=== PATIENT | female | born 1945 | race African-American/Black ===

== ENCOUNTER 2017-07-04 15:18 | Outpatient (CLI) | payer MEDICARE, OTHER | END 2017-07-04 15:19 | disposition home or self-care (01) | LOC: LABHHL 15:18 | PROVIDERS: ATTEND Specialist | DX: D24.2 Benign neoplasm of left breast (principal) | CPT/HCPCS: 88305 ==

== ENCOUNTER 2021-09-14 10:57 | Outpatient (CLI) | payer MEDICARE ==
--- NOTE | 2021-09-14 18:33 | Mammography Report ---
DIGITAL SCREENING MAMMOGRAM WITH CAD, 09/14/2021 CLINICAL INFORMATION / INDICATION: Routine screening mammography. SCREENING TECHNIQUE: Digital bilateral 2D mammography was obtained in the craniocaudal and mediolateral obliqu e projections. This examination was interpreted with the benefit of Computer-Aided Detection analysis . COMPARISON: Prior mammogram 08/14/2019 FINDINGS: Breast Density: The breasts are heterogeneously dense, which may obscure small masses. No dominant mass, suspicious calcifications, or architectural distortion in either breast. There is a stable benign-appearing nodular density with associated biopsy clip in the left breast. Th ere has been no significant change compared with the prior examination. IMPRESSION: No mammographic evidence of malignancy. Follow up recommendation: Routine yearly BI-RADS Category 2: BENIGN. A "normal" or negative report should not discourage follow up or biopsy of a clinically significant f inding. A written summary of these findings will be mailed to the patient. The patient will be entered into a mammography reporting system which will generate a reminder letter for the patient's next appointmen t at the appropriate interval. The [employer] recommends yearly mammograms starting at age 40 and continuing as l regino as a woman is in good health. Breast MRI is recommended for women with an approximate 20-25% or greater lifetime risk of breast cancer, including women with a strong family history of breast or ova earl cancer or who have been treated for Hodgkin's disease. Signer Name: Dorothea Gallego MD Signed: 09/14/2021 6:28 PM Workstation Name: [id number]
== END 2021-09-14 10:58 | disposition home or self-care (01) ==
LOC: SPVWC 10:57
PROVIDERS: ATTEND Internal Medicine
DX: Z12.31 Encounter for screening mammogram for malignant neoplasm of breast (principal)
CPT/HCPCS: 77067